=== PATIENT | female | born 1990 | race Caucasian/White ===

== ENCOUNTER → 2018-03-31 | Outpatient (REF) ==
[2015-04-03 08:34] VITALS: BMI 51.8
[~2018-03-31] MED LIST: ACET-1718 PO; ASCO100T15 PO; CALC-1198 PO; CRAN200C5 PO; ESC10 PO; ESCI5TAB10 PO; IBUP800T37 PO; LEV112 PO; LEVO25TA61 PO; PREN-162 PO; VITA-197 PO
[2018-03-31 21:15] LABS: LDL CHOLESTEROL 89 mg/dl
== END ==
DX: Z02.9 Encounter for administrative examinations, unspecified (principal)